=== PATIENT | female | born 1990 | race African-American/Black ===

== ENCOUNTER → 2016-10-06 09:24 | Outpatient (CLI) | payer MEDICAID | END | disposition home or self-care (01) | LOC: D.RAD 09-26 10:00 | DX: K21.9 Gastro-esophageal reflux disease without esophagitis (principal) ==

== ENCOUNTER → 2016-11-15 19:35 | Outpatient (CLI) | payer MEDICAID | END | disposition home or self-care (01) | LOC: D.SLEEP 19:35 | DX: G47.33 Obstructive sleep apnea (adult) (pediatric) (principal) ==

== ENCOUNTER → 2016-11-27 11:08 | Outpatient (CLI) | payer MEDICAID | END | disposition home or self-care (01) | LOC: D.RT 11:00 | DX: J45.909 Unspecified asthma, uncomplicated (principal) ==

== ENCOUNTER 2018-01-29 10:00 | Emergency (ER) | payer MEDICAID ==
[~2018-01-29] VITALS: Ht 167.6 cm; Wt 78.6 kg
[2018-01-29 10:20] VITALS: Ht 167.6 cm; Wt 78.6 kg
[2018-01-29 11:06] LABS: BASOPHILS 0.4 % (0-2); EOSINOPHILS 0.7 % (0-7); HEMATOCRIT 38.2 % (36.0-48.0); HEMOGLOBIN 12.8 g/dL (12-16); IMMATURE GRANULOCYTES 0.4 % (0-5); LYMPHOCYTES 32.1 % (15-50); MCH 28.8 pg (26.0-34.0); MCHC 33.5 g/dL (31.0-37.0); MEAN PLATELET VOLUME 9.2 fL (7.4-10.4); MONOCYTES 5.9 % (2-11); NEUTROPHILS 60.5 % (40-80); PLATELET COUNT 281 10x3/uL (130-400); RBC 4.44 10x6/uL (4.00-5.40); RDW 12.9 % (11.5-14.5); WBC 5.5 10x3/uL (4.8-10.8)
[2018-01-29 11:20] LABS: HCG SERUM NEGATIVE (NEGATIVE)
[2018-01-29 11:49] LABS: APPEARANCE CLEAR (CLEAR); COLOR STRAW (YELLOW); GLUCOSE NEGATIVE (NEGATIVE); KETONE NEGATIVE (NEGATIVE); NITRITE NEGATIVE (NEGATIVE); PROTEIN NEGATIVE (NEGATIVE); SPECIFIC GRAVITY 1.005 (1.005-1.020)
[2018-01-29 11:50] LABS: BILIRUBIN NEGATIVE (NEGATIVE); UROBILINOGEN NORMAL (NORMAL)
[2018-01-29 17:25] VITALS: BP 138/076
== END 2018-01-29 17:20 | disposition home or self-care (01) ==
LOC: D.ER 10:00
PROVIDERS: Family Medicine
DX: O03.9 Complete or unspecified spontaneous abortion without complication (principal)